=== PATIENT | male | born 1970 | race Caucasian/White ===

== ENCOUNTER 2019-01-31 07:14 | Emergency (ER) | payer OTHER ==
[2019-01-31] MEDS ORDERED: Morphine 4 MG/ML VIAL ONE (07:28)
[2019-01-31] MEDS ORDERED: Ondansetron PF 4 MG/2 ML Vial ONE (07:29)
[2019-01-31 07:50] LABS: #Eosinphils 0.1 thou/uL (0.0-0.7); #Monocytes 0.5 thou/uL (0.11-0.59); #Neutrophils 10.5 thou/uL (1.40-6.50); %Basophils 0.3 % (0.0-1.0); %Eosinophils 0.9 % (0.0-10.0); %Lymphocytes 15.3 % (21.0-51.0); %Monocytes 3.8 % (0.0-10.0); %Neutrophils 79.6 % (42.0-75.0); Hemoglobin 17.1 g/dL (14.0-18.0); Mean Corpuscular HGB CONC 34.9 g/dL (32.0-36.0); Mean Corpuscular Hemoglobin 31.2 pg (27.0-31.0); Mean Corpuscular Volume 89.4 fL (78.0-98.0); Mean Platelet Volume 6.8 fL (7.4-10.4); Platelet Count 276 thou/uL (130-400); RBC Distribution Width 11.9 % (11.5-14.5); White Blood Cell (WBC) Count 13.1 thou/uL (4.8-10.8)
[2019-01-31 08:12] LABS: ALT (SGPT) 29 U/L (8-55); AST (SGOT) 24 U/L (5-34); Albumin 4.6 g/dL (3.5-5.0); Alkaline Phosphatase 68 U/L (40-150); Anion Gap 16 mmol/L (10-20); BUN (Urea Nitrogen) 13 mg/dL (8.9-20.6); Bilirubin, Total 1.5 mg/dL (0.2-1.2); Calc. Creatinine Clearance 0 mL/min (70-130); Carbon Dioxide 22 mmol/L (22-29); Chloride 103 mmol/L (98-107); Estimated GFR-MDRD 57; Globulin 2.9 g/dL (2.4-3.5); Glucose 123 mg/dL (70-105); Potassium 3.7 mmol/L (3.5-5.1); Protein, Total 7.5 g/dL (6.0-8.3); Sodium 137 mmol/L (136-145)
--- NOTE | 2019-01-31 08:56 | CT ---
EXAM: CT Stone Protocol PROVIDED CLINICAL HISTORY: Flank pain COMPARISON: None FINDINGS: The visualized lung bases are free of significant opacity. Bilateral nephrolithiasis, measuring 1 to 2 mm. 4 mm left proximal ureteral calculus with mild left h ydronephrosis. Diffuse fatty infiltration of the liver. Hypodense masses involving left and right hepatic lobe incom pletely characterized in the absence of IV contrast but with CT features suggesting benign lesion such as cysts or hemangiomata. The solid abdominal organs demonstrate an otherwise unremarkable unenh anced CT appearance, suboptimally evaluated in the absence of IV contrast. Sigmoid colonic diverticulosis is seen without evidence for diverticulitis. The appendix appears norm al. No bowel dilatation, free fluid or free air apparent. The osseous structures demonstrate no concerning lytic or blastic lesions. IMPRESSION: 1. 4 mm obstructing left proximal ureteral calculus. 2. Bilateral nephrolithiasis. 3. Additional chronic findings as above.
[2019-01-31 11:48] LABS: Bilirubin Negative (Negative); Blood, Urine Large (Negative); Glucose, Urine (Dipstick) Negative (Negative); Leukocyte Negative (Negative); Nitrite Negative (Negative); Protein, Urine (Dipstick) 30 mg/dL (Neg-Trace); Urobilinogen 0.2 mg/dL (Less than 2)
[2019-01-31 11:54] LABS: Clarity Hazy (Clear)
[2019-01-31 11:56] LABS: Bacteria/HPF 1+ HPF (None Seen); RBC/HPF Greater than 50 HPF (0-3); Squamous Epithelial 0-3 HPF (0-3); WBC/HPF 0-3 HPF (0-3)
== END 2019-01-31 12:26 | disposition home or self-care (01) ==
LOC: ERS 07:14
DX: N20.1 Calculus of ureter (principal); I10 Essential (primary) hypertension
CPT/HCPCS: 74176; 80053; 81003; 81015; 85025; 87086; 96361; 96374; 96375; J2270; J2405

== ENCOUNTER 2019-11-05 05:44 | Outpatient (CLI) | payer OTHER ==
[2019-11-05 10:26] LABS: #Eosinphils 0.3 thou/uL (0.0-0.7); #Monocytes 0.4 thou/uL (0.11-0.59); #Neutrophils 3.7 thou/uL (1.40-6.50); %Basophils 0.7 % (0.0-1.0); %Eosinophils 4.6 % (0.0-10.0); %Lymphocytes 30.8 % (21.0-51.0); %Monocytes 6.5 % (0.0-10.0); %Neutrophils 57.5 % (42.0-75.0); Hemoglobin 16.7 g/dL (14.0-18.0); Mean Corpuscular HGB CONC 34.8 g/dL (32.0-36.0); Mean Corpuscular Hemoglobin 31.8 pg (27.0-31.0); Mean Corpuscular Volume 91.4 fL (78.0-98.0); Mean Platelet Volume 7.1 fL (7.4-10.4); Platelet Count 264 thou/uL (130-400); RBC Distribution Width 11.7 % (11.5-14.5); Red Blood Cell (RBC) Count 5.25 mill/uL (4.70-6.10); White Blood Cell (WBC) Count 6.3 thou/uL (4.8-10.8)
[2019-11-05 11:12] LABS: ALT (SGPT) 43 U/L (8-55); AST (SGOT) 29 U/L (5-34); Albumin 4.6 g/dL (3.5-5.0); Alkaline Phosphatase 69 U/L (40-110); Anion Gap 15 mmol/L (10-20); BUN (Urea Nitrogen) 13 mg/dL (8.9-20.6); Bilirubin, Total 0.6 mg/dL (0.2-1.2); Calc. Creatinine Clearance 0 mL/min (70-130); Calcium 9.6 mg/dL (7.8-10.44); Carbon Dioxide 24 mmol/L (22-29); Chloride 104 mmol/L (98-107); Estimated GFR-MDRD 71; Globulin 3.2 g/dL (2.4-3.5); Glucose 110 mg/dL (70-105); Potassium 4.2 mmol/L (3.5-5.1); Protein, Total 7.8 g/dL (6.0-8.3); Sodium 139 mmol/L (136-145)
[2019-11-05 18:20] LABS: SARS-CoV-2 MS2 Positive; SARS-CoV-2 N Gene Negative; SARS-CoV-2 S Gene Negative; SARS-CoV-2 orf1ab Negative
--- NOTE | 2019-11-07 16:35 | EKG ---
Test Reason : Blood Pressure : / mmHG Vent. Rate : 057 BPM Atrial Rate : 057 BPM P-R Int : 156 ms QRS Dur : 080 ms QT Int : 362 ms P-R-T Axes : 020 016 -10 degrees QTc Int : 352 ms Sinus bradycardia Nonspecific T wave abnormality Abnormal ECG No previous ECGs available Confirmed by ANNELISE FERRO (2) on 11/07/2019 4:34:42 PM Referred By: KIKI Confirmed By:ANNELISE FERRO
== END 2019-11-05 05:45 | disposition home or self-care (01) ==
LOC: LABBT 05:44
PROVIDERS: ATTEND Surgery
DX: Z01.818 Encounter for other preprocedural examination (principal); Z11.59 Encounter for screening for other viral diseases; K40.20 Bilateral inguinal hernia, without obstruction or gangrene, not specified as recurrent
CPT/HCPCS: 80053; 85025; 87635; 93005; 93010; U0003

== ENCOUNTER 2019-11-10 06:00 | Day surgery (SDC) | payer OTHER ==
[2019-11-05 09:15] VITALS: BMI 31.8
[2019-11-10] MEDS ORDERED: Famotidine/PF 20 mg/2ml Vial ONE (06:24)
[2019-11-10] MEDS ORDERED: Fentanyl 100 MCG/2 ML VIAL ONE ×3 (06:24→10:07)
[2019-11-10] MEDS ORDERED: Bupivacaine 0.25% HCL 30 ML VIAL ONE (06:56)
[2019-11-10] MEDS ORDERED: Lidocaine 1% w/Epinephrine 1:100K 20 ML VIAL ONE (06:56)
[2019-11-10] MEDS ORDERED: Midazolam HCl 2 mg/2 ml Vial ONE (07:22)
[2019-11-10] MEDS ORDERED: SUGAMMADEX SODIUM 200 MG/2 ML VIAL ONE (07:22)
[2019-11-10] MEDS ORDERED: Morphine 4 MG/ML VIAL ONE (11:15)
[2019-11-10] MEDS ORDERED: Rocuronium Bromide 10 MG/ML (10ML VIAL) ONE (12:04)
[2019-11-10] MEDS ORDERED: PROPOFOL 200 MG/20 ML VIAL ONE (12:04)
[2019-11-10] MEDS ORDERED: Dexamethasone 20 MG/5 ML VIAL ONE (12:04)
[2019-11-10] MEDS ORDERED: Lidocaine 1% PF 5 ML VIAL ONE (12:04)
[2019-11-10] MEDS ORDERED: Ketorolac Tromethamine 30 MG/ML VIAL ONE (12:04)
[2019-11-10] MEDS ORDERED: Metoclopramide HCl 10 MG/2 ML VIAL ONE (12:04)
[2019-11-10] MEDS ORDERED: Ondansetron PF 4 MG/2 ML Vial ONE (12:04)
[2019-11-10] MEDS ORDERED: HYDROcodone/Acetaminophen 5/325 mg Tablet ONE (12:44)
--- NOTE | 2019-11-10 12:57 | OP ---
DATE OF PROCEDURE: 11/10/2019 PREOPERATIVE DIAGNOSIS: Bilateral inguinal hernia. PROCEDURE PERFORMED: Laparoscopic robotic-assisted bilateral inguinal hernia repair with mesh. INDICATIONS: A 49-year-old male was having some right groin pain, found to have a right inguinal hernia, also found to have a smaller left inguinal hernia. FINDINGS: Bilateral direct inguinal hernia. DESCRIPTION OF PROCEDURE: After informed consent was obtained, the patient was taken to the operating room, given general endotracheal anesthesia, placed in the supine position. Abdomen was prepped and draped in usual fashion. Local anesthesia was infiltrated subcutaneously and deep, and a supraumbilical incision was performed. Subcu was divided sharply. The fascia was grasped and opened, and digital palpation revealed no local adhesions. A blunt 12 mm trocar inserted. Pneumoperitoneum was created to a pressure of 15 mmHg. The 30-degree laparoscope was inserted under direct vision. Two 8 mm ports were placed just lateral to the rectus at the level of the first incision. The patient was then placed in Trendelenburg position and the robot docked. I went to the console. Started on the left side, the median umbilical ligament was found. This was incised. The peritoneum was opened transversely utilizing scissors with electrocautery. Then, the pocket was created subperitoneally using blunt and sharp dissection. The hernia was reduced and the pubic tubercle exposed, then moved to the right. Again, from median umbilical ligament laterally, the peritoneum was opened and a subperitoneal pocket was created using blunt and sharp dissection to fully reduce the hernia. Two medium contour meshes were inserted, a left sided one and a right sided one, each placed in its pocket. These were secured to the pubic tubercle with a 2-0 silk suture, tied intracorporeally and anterior just medial to the epigastric vessels with the 2-0 silk suture. Then, the peritoneum was closed lateral to medial utilizing a running 3-0 V-Loc PDS. Hemostasis was assured. All the needles were accounted for. The abdomen was decompressed. The fascia was closed with interrupted 0 Vicryl suture. The skin was closed with interrupted 4-0 Rapide. Dermabond was applied. The patient tolerated the procedure well, transferred to Recovery in good condition. Sponge and needle count verified correct x2. Job ID: [id number]
== END 2019-11-10 13:08 | disposition home or self-care (01) ==
LOC: SDC 06:00
PROVIDERS: ATTEND Surgery
PROC: 0YUA4JZ Supplement Bilateral Inguinal Region with Synthetic Substitute, Percutaneous Endoscopic Approach (ICD-10-PCS; principal; 2019-11-10)
DX: K40.20 Bilateral inguinal hernia, without obstruction or gangrene, not specified as recurrent (principal); Z79.899 Other long term (current) drug therapy
CPT/HCPCS: C1781; J0690; J1100; J1885; J2001; J2250; J2270; J2405; J2704; J2765; J3010; S0020; S0028

== ENCOUNTER 2019-12-06 10:10 | Emergency (ER) | payer OTHER ==
[2019-12-06 11:14] LABS: Bacteria/HPF None Seen HPF (None Seen); Bilirubin Negative (Negative); Blood, Urine Trace (Negative); Clarity Clear (Clear); Glucose, Urine (Dipstick) Normal (Negative); Leukocyte Negative Leu/uL (Negative); Nitrite Negative (Negative); Protein, Urine (Dipstick) Negative (Neg-Trace); Squamous Epithelial None Seen HPF (0-3); Urobilinogen Normal mg/dL (Less than 2); WBC/HPF 0-3 HPF (0-3)
[2019-12-06 11:20] LABS: #Eosinphils 0.2 thou/uL (0.0-0.7); #Lymphocytes 1.1 thou/uL (1.20-3.40); #Monocytes 0.7 thou/uL (0.11-0.59); %Basophils 0.3 % (0.0-1.0); %Eosinophils 1.7 % (0.0-10.0); %Lymphocytes 10.9 % (21.0-51.0); %Monocytes 6.8 % (0.0-10.0); %Neutrophils 80.3 % (42.0-75.0); Hemoglobin 15.4 g/dL (14.0-18.0); Mean Corpuscular HGB CONC 34.4 g/dL (32.0-36.0); Mean Corpuscular Hemoglobin 31.4 pg (27.0-31.0); Mean Corpuscular Volume 91.3 fL (78.0-98.0); Mean Platelet Volume 7.1 fL (7.4-10.4); Platelet Count 237 thou/uL (130-400); RBC Distribution Width 11.5 % (11.5-14.5); White Blood Cell (WBC) Count 9.9 thou/uL (4.8-10.8)
[2019-12-06 12:02] LABS: ALT (SGPT) 20 U/L (8-55); AST (SGOT) 18 U/L (5-34); Albumin 4.5 g/dL (3.5-5.0); Alkaline Phosphatase 63 U/L (40-110); Anion Gap 12 mmol/L (10-20); BUN (Urea Nitrogen) 17 mg/dL (8.9-20.6); Bilirubin, Total 0.9 mg/dL (0.2-1.2); Calc. Creatinine Clearance 0 mL/min (70-130); Calcium 9.1 mg/dL (7.8-10.44); Carbon Dioxide 27 mmol/L (22-29); Chloride 103 mmol/L (98-107); Estimated GFR-MDRD 36; Globulin 3.2 g/dL (2.4-3.5); Glucose 98 mg/dL (70-105); Potassium 3.8 mmol/L (3.5-5.1); Protein, Total 7.7 g/dL (6.0-8.3); Sodium 138 mmol/L (136-145)
--- NOTE | 2019-12-06 13:11 | CT ---
EXAM: ABDOMEN AND PELVIC CT SCAN WITHOUT IV CONTRAST: FINDINGS: The lung bases appear clear. Fatty changes in the liver. Stable circumscribed hypodensities in the ri ght and left lobes of the liver. Gallbladder appears unremarkable without evidence of acute cholecyst itis. The pancreas, spleen, and adrenal glands are unremarkable. Several tiny bilateral nonobstructin g renal calculi. Moderate dilatation of the right ureter down to the level of the bladder. There appe ar to be at least two small calculi, free within the bladder, evidence for recently passed stones. No CT evidence for acute appendicitis. Colonic diverticulosis without acute diverticulitis. Multilevel lumbar spinal stenosis. Small fat containing umbilical and inguinal hernias. Minimal fat stranding in the midline just superior to the inguinal hernia which is new when compared to 01-31-2019 study. IMPRESSION: Dilated right upper renal collecting system and ureter down to the level of the bladder with two smal l bladder calculi, evidence for recently passed stones. Minimal midline fat stranding in the superfic ial subcutaneous tissues just superior to the fat containing inguinal hernia, new from the prior stud y. Tiny nonobstructing renal calculi. Other findings as above. POS: RRE
[2019-12-06] MEDS ORDERED: Acetaminophen 500 MG TAB ONE (13:35)
== END 2019-12-06 13:50 | disposition home or self-care (01) ==
LOC: ERS 10:10
DX: N20.0 Calculus of kidney (principal); I10 Essential (primary) hypertension; Z79.899 Other long term (current) drug therapy
CPT/HCPCS: 36415; 74176; 80053; 81003; 81015; 85025